=== PATIENT | female | born 1975 | race Hispanic/Latino ===

== ENCOUNTER → 2024-03-13 14:47 | Outpatient (REF) | payer OTHER, SELFPAY | LOC: HWRAD 14:47 | PROVIDERS: ATTENDING PHYSICIAN Obstetrics & Gynecology Gynecology; FAMILY PHYSICIAN Emergency Medicine | DX: R10.2 Pelvic and perineal pain (principal) | CPT/HCPCS: 76830; 76856 ==

== ENCOUNTER → 2024-05-15 12:55 | Outpatient (REF) | payer OTHER, SELFPAY | LOC: HWRAD 12:55 | PROVIDERS: ATTENDING PHYSICIAN Specialist; FAMILY PHYSICIAN Emergency Medicine | DX: Q61.3 Polycystic kidney, unspecified (principal) | CPT/HCPCS: 76775 ==

== ENCOUNTER → 2024-08-21 12:12 | Outpatient (REF) | payer OTHER, SELFPAY | LOC: WDC 12:12 | PROVIDERS: ATTENDING PHYSICIAN Emergency Medicine | DX: Z12.31 Encounter for screening mammogram for malignant neoplasm of breast (principal) | CPT/HCPCS: 77063; 77067 ==

== ENCOUNTER → 2025-06-06 08:52 | Outpatient (REF) | payer OTHER, SELFPAY | LOC: WDC 08:52 | PROVIDERS: ATTENDING PHYSICIAN Obstetrics & Gynecology Gynecology; FAMILY PHYSICIAN Emergency Medicine | DX: R92.2 Inconclusive mammogram (principal) | CPT/HCPCS: 76641 ==

== ENCOUNTER → 2025-08-15 12:53 | Outpatient (REF) | payer OTHER, SELFPAY | LOC: RCS 12:53 | DX: R07.89 Other chest pain (principal) | CPT/HCPCS: 93005 ==

== ENCOUNTER → 2025-09-11 12:56 | Outpatient (REF) | payer OTHER, SELFPAY | LOC: HWRAD 12:56 | PROVIDERS: ATTENDING PHYSICIAN Specialist; FAMILY PHYSICIAN Emergency Medicine | DX: Q61.3 Polycystic kidney, unspecified (principal) | CPT/HCPCS: 76770 ==

== ENCOUNTER → 2025-09-13 14:06 | Outpatient (REF) | payer OTHER, SELFPAY | LOC: WDC 14:06 | PROVIDERS: ATTENDING PHYSICIAN Obstetrics & Gynecology Gynecology; FAMILY PHYSICIAN Emergency Medicine | DX: Z12.31 Encounter for screening mammogram for malignant neoplasm of breast (principal) | CPT/HCPCS: 77063; 77067 ==

== ENCOUNTER → 2025-09-18 10:23 | Outpatient (REF) | payer OTHER, SELFPAY | LOC: HWRCS 10:23 | PROVIDERS: ATTENDING PHYSICIAN Nurse Practitioner Gerontology | DX: R01.1 Cardiac murmur, unspecified (principal) | CPT/HCPCS: 93306 ==